=== PATIENT | female | born 2000 | race Two or more races ===

== ENCOUNTER 2021-12-16 16:34 | Outpatient (CLI) | payer BC, SELFPAY ==
[2021-12-23 12:36] LABS: HPV Reflexed? NOT INDICATED
== END 2021-12-16 23:59 | disposition home or self-care (01) ==
LOC: WOBLAB 16:38
PROVIDERS: Visit Provider Obstetrics & Gynecology
DX: Z12.4 Encounter for screening for malignant neoplasm of cervix (principal)
CPT/HCPCS: 88175; G0145